=== PATIENT | male | born 1970 | race Caucasian/White ===

== ENCOUNTER 2020-06-03 10:02 | Inpatient (IN) | payer MEDICAID, OTHER ==
[~2020-06-03] VITALS: Ht 180.3 cm; Wt 89.5 kg
[2020-06-03 11:07] LABS: Urine Bacteria MOD /hpf (None Seen); Urine Blood Negative /uL (Negative); Urine Mucus FEW (None Seen); Urine Specific Gravity 1.013 (1.001-1.035); Urine Sperm PRESENT /hpf (None Seen)
[2020-06-03 11:16] LABS: Basophils # (auto) 0.1 10 ^3/uL (0-0.2); Basophils % (auto) 0.8 % (0.0-2.0); Eosinophils # (auto) 0.2 10 ^3/uL (0-0.8); Hematocrit 44.5 % (41.0-53.0); Hemoglobin 15.2 g/dL (13.5-17.5); Lymphocytes % (auto) 19.9 % (10.0-50.0); Mean Corpuscular Hemoglobin 32.1 pg (28.0-32.0); Mean Corpuscular Hgb Conc. 34.2 g/dL (32.0-36.0); Monocytes # (auto) 0.6 10 ^3/uL (0-1.3); Monocytes % (auto) 6.5 % (0.0-12.0); Neutrophils # (auto) 7.1 10 ^3/uL (1.6-8.6); Neutrophils % (auto) 70.8 % (37.0-80.0); Nucleated Red Blood Cells % 0.1 %; Platelet Count (auto) 291 10^3/uL (140-450); Red Blood Cells 4.73 10^6/uL (4.5-5.90); Red Cell Distribution Width 15.2 % (11.8-14.3)
[2020-06-03 11:38] LABS: Urine WBC 11 /hpf (0 - 3)
[2020-06-03 11:41] LABS: Calcium 8.9 mg/dL (8.5-10.1); Potassium 3.8 mmol/L (3.5-5.1)
[2020-06-03 11:48] LABS: BUN/Creatinine Ratio 17.8; Bilirubin, Total 8.1 mg/dL (0.2-1.0)
[2020-06-03] MEDS ORDERED: cefTRIAXone 1GM/50ML D5W 50 ML IV ONE (12:45)
[2020-06-03] MEDS ORDERED: DOCUSATE SOD 100 MG CAP PO PRN (13:30)
[2020-06-03] MEDS ORDERED: ACETAMINOPHEN 325 MG TAB PO PRN (13:30)
[2020-06-03] MEDS ORDERED: LORazepam 0.5 MG TAB PO PRN (13:30)
[2020-06-03] MEDS: SODIUM CHLORIDE 0.9% 1,000 ML IV SCH ×2 (13:30→23:40)
[2020-06-03] MEDS ORDERED: MORPHINE SULF INJ 2 MG/ML SYRINGE 1ML IV PRN (13:30)
[2020-06-03] MEDS: HYDROcodone-ACET 5/325MG TAB PO PRN (22:13)
[2020-06-04] MEDS: HYDROcodone-ACET 5/325MG TAB PO PRN ×3 (07:32→17:03)
[2020-06-04 09:07] LABS: Basophils # (auto) 0.1 10 ^3/uL (0-0.2); Basophils % (auto) 1.2 % (0.0-2.0); Eosinophils # (auto) 0.2 10 ^3/uL (0-0.8); Eosinophils % (auto) 2.4 % (0.0-7.0); Hematocrit 45.6 % (41.0-53.0); Hemoglobin 15.9 g/dL (13.5-17.5); Lymphocytes # (auto) 1.9 10 ^3/uL (0.4-5.4); Lymphocytes % (auto) 21.2 % (10.0-50.0); Mean Corpuscular Hemoglobin 32.6 pg (28.0-32.0); Mean Corpuscular Hgb Conc. 34.8 g/dL (32.0-36.0); Mean Corpuscular Volume 93.5 fL (80.0-100.0); Monocytes # (auto) 0.5 10 ^3/uL (0-1.3); Monocytes % (auto) 6.1 % (0.0-12.0); Neutrophils # (auto) 6.3 10 ^3/uL (1.6-8.6); Neutrophils % (auto) 69.1 % (37.0-80.0); Platelet Count (auto) 310 10^3/uL (140-450); Red Blood Cells 4.88 10^6/uL (4.5-5.90); Red Cell Distribution Width 14.9 % (11.8-14.3); White Blood Cell 9.1 10^3/uL (4.4-10.8)
[2020-06-04 09:31] LABS: BUN/Creatinine Ratio 16.2; Potassium 3.8 mmol/L (3.5-5.1)
[2020-06-04] MEDS: SODIUM CHLORIDE 0.9% 1,000 ML IV SCH ×2 (09:36→22:32)
[2020-06-04] MEDS ORDERED: GADOTERATE MEG 10 MMOL/20ml INJ (0.5MMOL/ml) IV ONE (11:01)
[2020-06-04 20:23] VITALS: BP 134/78
[2020-06-04 23:35] VITALS: BP 134/78
[2020-06-05] MEDS ORDERED: PNEUMOCOCCAL VACC POLYS 25 MCG/0.5 ML VIAL IM ONE (03:45)
[2020-06-05] MEDS ORDERED: INFLUENZA QUAD 2020-2021 0.5 ML SYRG IM ONE (03:45)
[2020-06-05 05:18] VITALS: BP 128/75
[2020-06-05] MEDS: SODIUM CHLORIDE 0.9% 1,000 ML IV SCH ×2 (05:30→08:39)
[2020-06-05] MEDS ORDERED: ASCO500T11 PO (05:34)
[2020-06-05] MEDS ORDERED: ASPI81CH59 PO (05:34)
[2020-06-05 09:00] VITALS: BP 133/85
[2020-06-05] MEDS ORDERED: diphenhdrAMINE HCL 50 MG/1 ML VL IV ONE (09:00)
[2020-06-05] MEDS ORDERED: levoFLOXacin 500MG 100 ML IV ONE (11:00)
[2020-06-05] MEDS ORDERED: PANTOPRAZOLE 40 MG/10 ML VIAL INJ IV ONE (11:00)
[2020-06-05 11:46] LABS: INR 1.05 (0.9-1.15)
[2020-06-05 12:53] VITALS: BP 112/63
[2020-06-05] MEDS: metroNIDAZOLE 500MG/100ML 100 ML IV SCH ×2 (14:00→21:36)
[2020-06-05] MEDS: SOD CHL 0.9%/ KCL 20MEQ 1,000 ML IV SCH (15:00)
[2020-06-05 16:57] VITALS: BP 118/66
[2020-06-05] MEDS: ONDANSETRON HCL 4 MG/2 ML VIAL IV PRN (18:16)
[2020-06-05 22:00] VITALS: BP 140/90
[2020-06-06] MEDS: SOD CHL 0.9%/ KCL 20MEQ 1,000 ML IV SCH (04:55)
[2020-06-06 05:00] VITALS: BP 131/81
[2020-06-06] MEDS: metroNIDAZOLE 500MG/100ML 100 ML IV SCH ×2 (05:50→13:42)
[2020-06-06 07:14] LABS: Basophils # (auto) 0 10 ^3/uL (0-0.2); Basophils % (auto) 0.4 % (0.0-2.0); Eosinophils # (auto) 0.2 10 ^3/uL (0-0.8); Eosinophils % (auto) 3.2 % (0.0-7.0); Hematocrit 40.6 % (41.0-53.0); Hemoglobin 13.9 g/dL (13.5-17.5); Lymphocytes # (auto) 1.5 10 ^3/uL (0.4-5.4); Mean Corpuscular Hemoglobin 32.3 pg (28.0-32.0); Mean Corpuscular Hgb Conc. 34.3 g/dL (32.0-36.0); Monocytes # (auto) 0.5 10 ^3/uL (0-1.3); Monocytes % (auto) 6.6 % (0.0-12.0); Neutrophils % (auto) 68.8 % (37.0-80.0); Platelet Count (auto) 243 10^3/uL (140-450); Red Blood Cells 4.31 10^6/uL (4.5-5.90); Red Cell Distribution Width 15.1 % (11.8-14.3); White Blood Cell 7.3 10^3/uL (4.4-10.8)
[2020-06-06 07:25] LABS: Albumin 2.6 g/dL (3.4-5.0); Calcium 8.9 mg/dL (8.5-10.1); Potassium 3.3 mmol/L (3.5-5.1)
[2020-06-06 07:27] LABS: BUN/Creatinine Ratio 13.5
[2020-06-06 07:29] LABS: Bilirubin, Total 7.9 mg/dL (0.2-1.0); Total Protein 6.2 g/dL (6.4-8.2)
[2020-06-06 09:00] VITALS: BP 118/84
[2020-06-06] MEDS: ONDANSETRON HCL 4 MG/2 ML VIAL IV PRN (09:26)
[2020-06-06] MEDS ORDERED: levoFLOXacin 500MG 100 ML IV SCH (10:00)
[2020-06-06] MEDS ORDERED: PANTOPRAZOLE 40 MG/10 ML VIAL INJ IV SCH (10:00)
[2020-06-06] MEDS ORDERED: LIDOCAINE 1% (LOCAL ANESTH.) PF 5ml SDV ONE (12:21)
[2020-06-06] MEDS ORDERED: SUCCINYLCHOLINE CHLORIDE 20 MG/ML 10ML VIAL IV ONE (12:22)
[2020-06-06] MEDS ORDERED: MIDAZOLAM HCL 1MG/1ML-2 ML VIAL ONE (12:26)
[2020-06-06] MEDS ORDERED: GLYCOPYRROLATE 0.2 MG/ML 1ML VIAL ONE (12:26)
[2020-06-06] MEDS ORDERED: diphenhdrAMINE HCL 50 MG/1 ML VL ONE (12:26)
[2020-06-06] MEDS ORDERED: fentaNYL CITRATE 100 MCG/2 ML VL ONE (12:27)
[2020-06-06] MEDS ORDERED: KETAMINE HCL 10 ML ONE (12:28)
[2020-06-06] MEDS ORDERED: PROPOFOL 10 MG/ML 20 ML IV ONE (12:28)
[2020-06-06] MEDS ORDERED: IOHEXOL 300 MG/ML 100ML BOTTLE IJ ONE (12:32)
[2020-06-06 13:00] VITALS: BP 129/80
[2020-06-06] MEDS ORDERED: ONDANSETRON HCL 4 MG/2 ML VIAL IV PRN (13:15)
[2020-06-06] MEDS ORDERED: hydrALAZINE HCL 20 MG/ML VL IV PRN (13:15)
[2020-06-06] MEDS ORDERED: NALOXONE HCL 0.4 MG/ML VIAL IV PRN (13:15)
[2020-06-06] MEDS ORDERED: HYDROmorphone HCL 2 MG/ML VL IV PRN (13:15)
[2020-06-06 13:35] VITALS: BP 136/89
[2020-06-06] MEDS ORDERED: METR500T PO (14:13)
[2020-06-06] MEDS ORDERED: PANT40TA2 PO (14:13)
[2020-06-06] MEDS ORDERED: LEVO-28 PO (14:13)
[2020-06-06] MEDS ORDERED: ONDA-144 PO (14:13)
[2020-06-06] MEDS ORDERED: POTASSIUM EFFERVESENT TAB 25 MEQ PO ONE (14:15)
== END 2020-06-06 15:50 | disposition home or self-care (01) | DRG 281 ==
LOC: EDSEX 10:02 → ER 10:02 → EDBD 10:02 → OVERFLOW 13:41 → WEST WING 06-04 20:21
PROVIDERS: ADMIT Hospitalist; ATTEND Family Medicine
PROC: 0F798DZ Dilation of Common Bile Duct with Intraluminal Device, Via Natural or Artificial Opening Endoscopic (ICD-10-PCS; principal; 2020-06-06 12:23)
DX: C25.0 Malignant neoplasm of head of pancreas (principal); E44.1 Mild protein-calorie malnutrition; E78.1 Pure hyperglyceridemia; E78.5 Hyperlipidemia, unspecified; F12.90 Cannabis use, unspecified, uncomplicated; K83.1 Obstruction of bile duct; N32.3 Diverticulum of bladder; N39.0 Urinary tract infection, site not specified; Z20.828 Contact with and (suspected) exposure to other viral communicable diseases; Z80.0 Family history of malignant neoplasm of digestive organs; Z68.27 Body mass index [BMI] 27.0-27.9, adult
CPT/HCPCS: 36415; 71045; 74018; 74176; 74183; 76001; 76705; 80048; 80053; 80061; 81001; 83605; 83615; 85025; 85610; 85730; 86301; 87040; 87086; 96365; C9113; G0378; J0330; J0696; J1956; J2250; J2405; J2704; J3490